=== PATIENT | male | born 1985 | race Hispanic/Latino ===

== ENCOUNTER 2021-02-27 07:47 | Emergency (ER) | payer OTHER ==
[~2021-02-27] VITALS: Ht 175.3 cm; Wt 108.9 kg
[2021-02-27] MEDS ORDERED: ONDANSETRON 4MG INJ ONE (08:22)
[2021-02-27] MEDS ORDERED: KETOROLAC 30MG VIAL (30MG/ML) ONE (08:23)
[2021-02-27] MEDS ORDERED: 0.9%NACL 1000ML 1,000 ML IV ONE (08:23)
[2021-02-27 08:25] LABS: BASOPHILS % (AUTO) 0.6 % (0.0-5.0); EOSINOPHILS % (AUTO) 2.2 % (0.0-8.0); HEMATOCRIT 46.2 % (42-54); MEAN CORPUSCULAR HEMOGLOBIN 31.1 pg (27.0-33.0); MEAN CORPUSCULAR HGB CONC 33.3 g/dL (32.0-36.0); MEAN CORPUSCULAR VOLUME 93.3 fL (79-99); NEUTROPHILS % (AUTO) 59.9 % (40.0-77.0); PLATELET COUNT (AUTO) 273 K/uL (130-400); RED BLOOD CELL COUNT(AUTO) 4.95 MIL/uL (4.50-6.20); RED CELL DISTRIBUTION WIDTH 12.6 % (11.0-15.5); WHITE BLOOD COUNT (AUTO) 8.8 K/uL (4.8-10.8)
[2021-02-27] MEDS ORDERED: KETOROLAC 30MG VIAL (30MG/ML) IV SCH (08:30)
[2021-02-27] MEDS ORDERED: 0.9%NACL 1000ML 1,000 ML IV SCH (08:30)
[2021-02-27] MEDS ORDERED: ONDANSETRON 4MG INJ IVP SCH (08:30)
[2021-02-27 08:40] LABS: ALBUMIN 4.2 g/dL (3.5-5.0); CREATININE 1.1 mg/dL (0.5-1.5); POTASSIUM 3.7 mmol/L (3.5-5.1)
[2021-02-27 08:43] LABS: BILIRUBIN,TOTAL 0.4 mg/dL (0.2-1.0); TOTAL PROTEIN, SERUM 7.6 g/dL (6.0-8.3)
[2021-02-27] MEDS ORDERED: MORPHINE 4 MG SYG ONE (09:06)
[2021-02-27 09:30] LABS: APPEARANCE,URINE Clear (CLEAR); BILIRUBIN,URINE Negative (NEGATIVE); COLOR,URINE Yellow (YELLOW); GLUCOSE, URINE (UA) Negative (NEGATIVE); KETONES,URINE Negative (NEGATIVE); LEUKOCYTE ESTERASE ,URINE Negative (NEGATIVE); NITRATE,URINE Negative (NEGATIVE); OCCULT BLOOD,URINE Negative (NEGATIVE); PH,URINE 5.5 (5.0-8.0); PROTEIN,URINE Negative (NEGATIVE)
[2021-02-27] MEDS ORDERED: MORPHINE 4 MG SYG IV SCH ×2 (09:30→11:00)
[2021-02-27 09:37] LABS: AMPHET/METH SCREEN,URINE NEGATIVE (NEGATIVE); BARBITURATE SCREEN, URINE NEGATIVE (NEGATIVE); BENZODIAZEPINES SCREEN,URINE NEGATIVE (NEGATIVE); CANNABINOID SCREEN,URINE POSITIVE (NEGATIVE); COCAINE SCREEN,URINE NEGATIVE (NEGATIVE); OPIATE SCREEN,URINE NEGATIVE (NEGATIVE); PHENCYCLIDINE SCREEN,URINE NEGATIVE (NEGATIVE)
[2021-02-27] MEDS ORDERED: ACET1TAB25 PO (14:48)
[2021-02-27 15:07] VITALS: BP 124/78
[2021-03-03] MEDS ORDERED: METR-172 PO (13:10)
[2021-03-03] MEDS ORDERED: CEFU500T67 PO (13:10)
== END 2021-02-27 15:37 | disposition home or self-care (01) ==
LOC: EDH 07:47
DX: K80.50 Calculus of bile duct without cholangitis or cholecystitis without obstruction (principal); Z79.1 Long term (current) use of non-steroidal anti-inflammatories (NSAID); Z79.899 Other long term (current) drug therapy
CPT/HCPCS: 36415; 74176; 76705; 80053; 80305; 81003; 82150; 83690; 84484; 85025; 93005; 96361; 96374; 96375; 96376; 99285; J1885; J2270 ×2; J2405; J7030